=== PATIENT | female | born 1950 | race Caucasian/White ===

== ENCOUNTER 2018-07-30 16:39 | Inpatient (IN) | payer MEDICARE, MEDICAID ==
[~2018-07-30] VITALS: Ht 177.8 cm; Wt 56.8 kg
[2018-07-30 18:02] LABS: BASOPHILS # (AUTO) 0.1 X10'3 (0-0.2); BASOPHILS % (AUTO) 0.8 % (0-1); EOSINOPHILS # (AUTO) 0.2 X10'3 (0-0.9); EOSINOPHILS % (AUTO) 3.3 % (0-6); HEMATOCRIT 35.8 % (35.0-45.0); HEMOGLOBIN 11.8 g/dl (12.0-16.0); LYMPHOCYTES # (AUTO) 1.3 X10'3 (1.1-4.8); LYMPHOCYTES % (AUTO) 21.1 % (21-51); MEAN CORPUSCULAR HEMOGLOBIN 25.9 PG (27.0-31.0); MEAN CORPUSCULAR HGB CONC 32.9 g/dL (33.0-36.5); MEAN CORPUSCULAR VOLUME 78.8 FL (78-98); MEAN PLATELET VOLUME 7.6 FL (7.4-10.4); MONOCYTES # (AUTO) 0.9 X10'3 (0-0.9); MONOCYTES % (AUTO) 13.8 % (2-12); NEUTROPHILS # (AUTO) 3.9 X10'3 (1.8-7.7); PLATELET COUNT 416 X10'3 (140-440); RED BLOOD COUNT 4.54 X10'6 (4.20-5.60); RED CELL DISTRIBUTION WIDTH 20.3 % (11.5-14.5); WHITE BLOOD COUNT 6.4 X10'3 (4.5-11.0)
[2018-07-30 18:10] LABS: ALANINE AMINOTRANSFERASE 45 U/L (12-78); ALBUMIN 3.7 G/DL (3.4-5.0); ALBUMIN/GLOBULIN RATIO 0.9 (1.1-1.5); ALKALINE PHOSPHATASE 147 IU/L (46-116); ANION GAP 9 (8-16); ASPARTATE AMINO TRANSFERASE 32 U/L (10-37); BILIRUBIN,TOTAL 0.2 MG/DL (0.1-1.0); BLOOD UREA NITROGEN 10 MG/DL (7-18); BUN/CREATININE RATIO 17.2 (6.6-38.0); CALCIUM 9.8 MG/DL (8.5-10.1); CHLORIDE 97 MMOL/L (99-107); CREATININE 0.58 MG/DL (0.40-0.90); GLUCOSE 98 MG/DL (70-104); PARTIAL THROMBOPLASTIN TIME 28 SECONDS (22-32); POTASSIUM 3.8 MMOL/L (3.5-5.1); SODIUM 131 MMOL/L (135-145); eGFR > 90 ML/MIN
[2018-07-30 18:23] LABS: CLARITY,URINE CLEAR (Clear); COLOR,URINE YELLOW (Yellow); GLUCOSE, URINE NEGATIVE (Neg); KETONES,URINE NEGATIVE (Neg); LEUKOCYTE ESTERASE ,URINE NEGATIVE (Neg); NITRITES, URINE NEGATIVE (Neg); OCCULT BLOOD,URINE NEGATIVE (Neg); PROTEIN,URINE NEGATIVE (Neg); UA COLLECTION TYPE VOIDED
[2018-07-30 18:29] LABS: ANISOCYTOSIS 3+; MICROCYTOSIS 1+; PLATELET ESTIMATE NORMAL
[2018-07-30] MEDS ORDERED: ondansetron/PF 4mg/2ml inj IV ONE (18:35)
[2018-07-30] MEDS: morphine 4 MG/ML inj SYRINge IV PRN ×2 (18:39→21:48)
[2018-07-30] MEDS ORDERED: DOCU100C41 PO (18:46)
[2018-07-30] MEDS ORDERED: ONDA4TAB6 PO (18:46)
[2018-07-30] MEDS ORDERED: BUSP10TA11 PO (18:47)
[2018-07-30] MEDS ORDERED: TRAM50TA2 PO (18:47)
[2018-07-30] MEDS ORDERED: HYDR-4353 PO (18:56)
[2018-07-30] MEDS ORDERED: ACET-2119 PO (18:56)
[2018-07-30] MEDS ORDERED: PANT-47 PO (18:56)
[2018-07-30] MEDS ORDERED: CARB15DR (18:56)
[2018-07-30] MEDS ORDERED: ASPI-1264 PO (18:56)
[2018-07-30] MEDS ORDERED: IPRA3AMP9 IH (18:56)
[2018-07-30] MEDS ORDERED: ondansetron/PF 4mg/2ml inj IV PRN (20:55)
[2018-07-30] MEDS ORDERED: magnesium hydroxide 30ml (MOM) UD suspension PO PRN (20:55)
[2018-07-30] MEDS ORDERED: mag hydrox/Alum hydrox/simeth 30ml oral suspension PO PRN (20:55)
[2018-07-30] MEDS ORDERED: HYDROcodone/acetaminophen 5mg/325mg tablet PO PRN (20:55)
[2018-07-30] MEDS ORDERED: acetaminophen 325mg tablet PO PRN (20:55)
[2018-07-30] MEDS ORDERED: morphine 2 MG/ML inj. syringe IV PRN ×2 (20:55)
--- NOTE | 2018-07-30 22:05 | NUR ---
I have received report from Preet HONEYCUTT and had the opportunity to ask questions and assume patient care.
[2018-07-30 22:15] VITALS: BP 127/77
[2018-07-30] MEDS: normal saline 1000ml 1,000 ML IV SCH (23:12)
[2018-07-31] VITALS (17 sets, daily range): BP systolic 90–127; BP diastolic 50–82
[2018-07-31 06:13] LABS: BASOPHILS # (AUTO) 0.1 X10'3 (0-0.2); BASOPHILS % (AUTO) 0.9 % (0-1); EOSINOPHILS # (AUTO) 0.4 X10'3 (0-0.9); EOSINOPHILS % (AUTO) 6.8 % (0-6); HEMATOCRIT 32.7 % (35.0-45.0); HEMOGLOBIN 10.7 g/dl (12.0-16.0); LYMPHOCYTES # (AUTO) 1.2 X10'3 (1.1-4.8); LYMPHOCYTES % (AUTO) 21.6 % (21-51); MEAN CORPUSCULAR HEMOGLOBIN 26.2 PG (27.0-31.0); MEAN CORPUSCULAR HGB CONC 32.7 g/dL (33.0-36.5); MEAN PLATELET VOLUME 7.4 FL (7.4-10.4); MONOCYTES # (AUTO) 1.1 X10'3 (0-0.9); MONOCYTES % (AUTO) 18.6 % (2-12); NEUTROPHILS # (AUTO) 2.9 X10'3 (1.8-7.7); NEUTROPHILS % (AUTO) 52.1 % (42-75); PLATELET COUNT 369 X10'3 (140-440); RED BLOOD COUNT 4.09 X10'6 (4.20-5.60); RED CELL DISTRIBUTION WIDTH 20.6 % (11.5-14.5); WHITE BLOOD COUNT 5.6 X10'3 (4.5-11.0)
--- NOTE | 2018-07-31 06:16 | NUR ---
REPORT GIVEN TO BLANCA HONEYCUTT
--- NOTE | 2018-07-31 06:30 | NUR ---
I received patient report from True HONEYCUTT's
[2018-07-31 06:41] LABS: ALBUMIN 3.2 G/DL (3.4-5.0); ANION GAP 6 (8-16); BLOOD UREA NITROGEN 10 MG/DL (7-18); BUN/CREATININE RATIO 15.4 (6.6-38.0); CALCIUM 10.1 MG/DL (8.5-10.1); CHLORIDE 100 MMOL/L (99-107); CREATININE 0.65 MG/DL (0.40-0.90); GLUCOSE 84 MG/DL (70-104); POTASSIUM 3.7 MMOL/L (3.5-5.1); SODIUM 135 MMOL/L (135-145); TOTAL CARBON DIOXIDE 28.6 MMOL/L (24-32); eGFR > 90 ML/MIN
[2018-07-31] MEDS: acetaminophen 325mg tablet PO PRN (06:45)
[2018-07-31 07:19] LABS: PLATELET ESTIMATE NORMAL
[2018-07-31 07:20] LABS: ANISOCYTOSIS 3+; SCHISTOCYTES FEW
[2018-07-31] MEDS ORDERED: ringers solution, lacted 1,000 ML IV ONE (07:25)
[2018-07-31] MEDS: normal saline 1000ml 1,000 ML IV SCH ×2 (07:42→20:03)
[2018-07-31] MEDS ORDERED: ringers solution, lacted 1,000 ML IV SCH (11:31)
[2018-07-31] MEDS ORDERED: ondansetron/PF 4mg/2ml inj IV PRN ×2 (11:35→15:30)
[2018-07-31] MEDS ORDERED: morphine 4 MG/ML inj SYRINge IV PRN ×2 (11:35)
[2018-07-31] MEDS ORDERED: proCHLORperazine 10 MG/2 ml inj IV PRN (11:35)
[2018-07-31] MEDS ORDERED: meperidine/PF 25mg/ml syringe IV PRN ×3 (11:35)
[2018-07-31] MEDS ORDERED: ketorolac trometh. 30mg/ml inj. ONE ×2 (12:28→16:59)
[2018-07-31] MEDS ORDERED: epiNEPHrine 1 mg/ml inj ONE (12:28)
[2018-07-31] MEDS ORDERED: vancomycin 1,000mg inj ONE ×4 (12:29→16:39)
[2018-07-31] MEDS ORDERED: ROPIVAcaine 0.5% (5mg/ml) 30ml vial ONE (12:29)
[2018-07-31] MEDS ORDERED: tranexamic acid inj. 1,000 MG in normal saline 100ml IV soln 100 ML IV ONE (12:45)
[2018-07-31] MEDS ORDERED: MIDAZolam 1mg/ml 10ml vial ONE (12:59)
[2018-07-31] MEDS ORDERED: morphine /PF 1mg/ml 10ml inj. ONE (12:59)
[2018-07-31] MEDS ORDERED: fentaNYL/PF 50MCG/1 ML 2ML syringe ONE ×2 (12:59→16:55)
[2018-07-31] MEDS ORDERED: ceFAZolin 1000mg inj ONE ×3 (13:26→16:04)
[2018-07-31] MEDS ORDERED: naloxone 2mg/2ml inj 1.2 MG in normal saline 500ml IV soln 500 ML IV PRN (15:27)
[2018-07-31] MEDS ORDERED: diphenhydrAMINE 50 mg/ml inj IV PRN (15:30)
--- NOTE | 2018-07-31 17:10 | NUR ---
Received from OR via BED , accompanied by Anesthesiologist DR FOX and report given by Anesthesiolgist. PATIENT WAKING UP, DENIES PAIN, V/S WNL, NEUROVASCULAR CHECKS INTACT, 20G PIV LUE , VERONICA DRESSING TO LEFT HIP CDI W/ COLD POWDER PACK AND IMMOBILIZER BRACE W/ SCD ON. F/C DRAINING CLEAR YELLOW URINE.
--- NOTE | 2018-07-31 17:47 | NUR ---
I have received patient report from Jimmy HONEYCUTTmarketing administrative assistant
--- NOTE | 2018-07-31 18:00 | NUR ---
PATIENT A&OX4, DENIES PAIN, V/S WNL, NEUROVASCULAR CHECKS INTACT, 20G PIV LUE , VERONICA DRESSING TO LEFT HIP CDI W/ COLD POWDER PACK AND IMMOBILIZER BRACE W/ SCD ON. F/C DRAINING CLEAR YELLOW URINE. PATIENT TAKEN TO ORTHO WITH ALL BELONGINGS AND HOOKED UP TO MONITORS IN ROOM AND REPORT GIVEN TO LEGAL SUMMER INTERN WHO HAS TAKEN OVER PATIENT CARE.
--- NOTE | 2018-07-31 18:15 | NUR ---
Patient in room ORTHO 4024. I have received report from YINKA [place] and had the opportunity to ask questions and assume patient care.
--- NOTE | 2018-07-31 18:35 | NUR ---
Patient report given to Maggy HONEYCUTT
[2018-07-31] MEDS ORDERED: polyvinyl alcohol ophthalmic drops 15ml bottle EACHEYE PRN (18:50)
[2018-07-31] MEDS ORDERED: ondansetron 4mg rapidly disintigrating tab PO PRN (18:55)
[2018-07-31] MEDS ORDERED: non-formulary drug (Ondansetron Hcl (Zofran) 1 TAB) PO SCH (20:00)
[2018-07-31] MEDS: docusate sod 100mg capsule PO SCH (20:03)
[2018-07-31] MEDS: traMADol 50MG tablet PO SCH (20:04)
[2018-07-31] MEDS: busPIRone 5mg tablet PO SCH (20:04)
[2018-07-31] MEDS ORDERED: non-formulary drug (Buspirone Hcl* (Buspar*) 1 TAB) PO SCH (21:00)
[2018-07-31] MEDS: cefazolin/dext.iso 2gm/100ml 100 ML IV SCH (23:25)
[2018-07-31] MEDS: HYDROcodone/acetaminophen 10/325mg tab PO PRN (23:30)
[2018-08-01 01:45] VITALS: BP 126/54
[2018-08-01] MEDS: traMADol 50MG tablet PO SCH ×3 (02:31→14:02)
[2018-08-01] MEDS: normal saline 1000ml 1,000 ML IV SCH ×2 (02:53→04:36)
[2018-08-01] MEDS: acetaminophen 325mg tablet PO PRN (04:42)
[2018-08-01] MEDS ORDERED: vancomycin/NS 1 GM ADD-VANTAGE 250 ML IV ONE (05:00)
[2018-08-01 05:16] LABS: BASOPHILS # (AUTO) 0.1 X10'3 (0-0.2); BASOPHILS % (AUTO) 0.8 % (0-1); EOSINOPHILS # (AUTO) 0.1 X10'3 (0-0.9); EOSINOPHILS % (AUTO) 2.1 % (0-6); HEMATOCRIT 26.5 % (35.0-45.0); HEMOGLOBIN 8.7 g/dl (12.0-16.0); LYMPHOCYTES % (AUTO) 14.6 % (21-51); MEAN CORPUSCULAR HEMOGLOBIN 25.8 PG (27.0-31.0); MEAN CORPUSCULAR HGB CONC 32.8 g/dL (33.0-36.5); MEAN CORPUSCULAR VOLUME 78.8 FL (78-98); MEAN PLATELET VOLUME 7.8 FL (7.4-10.4); MONOCYTES # (AUTO) 0.9 X10'3 (0-0.9); MONOCYTES % (AUTO) 12.5 % (2-12); NEUTROPHILS # (AUTO) 4.9 X10'3 (1.8-7.7); PLATELET COUNT 296 X10'3 (140-440); RED BLOOD COUNT 3.36 X10'6 (4.20-5.60); RED CELL DISTRIBUTION WIDTH 19.8 % (11.5-14.5)
[2018-08-01 05:26] LABS: ALBUMIN 2.5 G/DL (3.4-5.0); ANION GAP 7 (8-16); BLOOD UREA NITROGEN 11 MG/DL (7-18); BUN/CREATININE RATIO 18.6 (6.6-38.0); CALCIUM 8.9 MG/DL (8.5-10.1); CHLORIDE 103 MMOL/L (99-107); CREATININE 0.59 MG/DL (0.40-0.90); GLUCOSE 97 MG/DL (70-104); POTASSIUM 3.7 MMOL/L (3.5-5.1); SODIUM 134 MMOL/L (135-145); TOTAL CARBON DIOXIDE 23.8 MMOL/L (24-32); eGFR > 90 ML/MIN
[2018-08-01] MEDS: HYDROcodone/acetaminophen 10/325mg tab PO PRN ×2 (05:44→14:03)
[2018-08-01 05:45] VITALS: BP 98/61
[2018-08-01 06:00] VITALS: BP 95/55
--- NOTE | 2018-08-01 06:34 | NUR ---
Problems reprioritized. Patient report given, questions answered & plan of care reviewed with Art,RN.
[2018-08-01] MEDS ORDERED: pantoprazole 40mg Tablet.DR PO SCH (08:00)
[2018-08-01] MEDS ORDERED: enoxaparin 40mg/0.4ml syringe SUBCUT SCH (08:00)
[2018-08-01] MEDS ORDERED: aspirin 325mg tablet PO SCH (08:00)
[2018-08-01] MEDS: cefazolin/dext.iso 2gm/100ml 100 ML IV SCH (09:10)
[2018-08-01] MEDS: docusate sod 100mg capsule PO SCH (09:10)
[2018-08-01] MEDS: busPIRone 5mg tablet PO SCH ×2 (09:10→14:02)
--- NOTE | 2018-08-01 09:13 | NUR ---
RECEIVED A CALL FROM [employer], REQUESTING THAT NO INFORMATION TO BE GIVEN REGARDING PATIENT TO .
[2018-08-01 09:24] LABS: ANISOCYTOSIS 2+; HYPOCHROMASIA 1+; MICROCYTOSIS 1+; PLATELET ESTIMATE NORMAL; TOTAL CELLS COUNTED 100
[2018-08-01 09:25] LABS: POLYCHROMASIA FEW
[2018-08-01 10:00] VITALS: BP 92/49
--- NOTE | 2018-08-01 15:22 | NUR ---
Report called to Sully at [facility]. Pt transferred to transport [facility] after IV was removed, tip intact. All known pt property returned to pt.
== END 2018-08-01 15:15 | DRG 470 ==
LOC: ER 16:41 → ORTHO 4S 21:52 → CMPBEDREQ 22:23
PROVIDERS: ADMIT Hospitalist; ATTEND Orthopaedic Surgery
PROC: 0QP704Z Removal of Internal Fixation Device from Left Upper Femur, Open Approach (ICD-10-PCS; 2018-07-31)
PROC: 0SRB06A Replacement of Left Hip Joint with Oxidized Zirconium on Polyethylene Synthetic Substitute, Uncemented, Open Approach (ICD-10-PCS; principal; 2018-07-31 12:48)
DX: S72.002K Fracture of unspecified part of neck of left femur, subsequent encounter for closed fracture with nonunion (principal); E44.0 Moderate protein-calorie malnutrition; Z68.1 Body mass index [BMI] 19.9 or less, adult; Z88.2 Allergy status to sulfonamides; F41.9 Anxiety disorder, unspecified; Z87.891 Personal history of nicotine dependence; M21.70 Unequal limb length (acquired), unspecified site; Z79.82 Long term (current) use of aspirin; Z96.649 Presence of unspecified artificial hip joint; X58.XXXD Exposure to other specified factors, subsequent encounter
CPT/HCPCS: 36415; 71045; 73552; 73700; 80048; 80053; 81003; 85025; 85610; 85730; 86885; 86900; 86901; 86920; 87070; 93005; 96374; 96375; 97110; 97162; 97530; 99285; A4615; A7000; A9272; C1758; C1776; G0378; J0171; J0690; J1650; J1885; J2250; J2270; J2274; J2310; J2405; J2795; J3010; J3370; J7030; J7120